=== PATIENT | male | born 1960 | race African-American/Black ===

== ENCOUNTER 2020-04-23 05:19 | Inpatient (IN) ==
[2020-04-23] MEDS ORDERED: SODIUM CHLORIDE 0.9% 1,000 ML IV STA (05:44)
[2020-04-23 05:47] LABS: Basophils % 0.2 % (0.0-0.8); Eosinophils % 0.2 % (0.00-10.9); Hematocrit 22.5 VOL% (42.0-52.0); Hemoglobin 7.6 GM/DL (14.0-18.0); Immature Granulocytes % 0.6 %; Immature Granulocytes Absolute 0.12 #; Lymphocytes # 1.3 10*3/uL (1.4-4.0); Lymphocytes % 6.5 % (21.2-54.2); Mean Corpuscular HGB Conc 33.8 GM/DL (32-36); Mean Corpuscular Volume 61.6 FL (87-102); Mean Platelet Volume 8.7 FL (9.6-12.0); Monocytes % 10.4 % (1.7-12.7); Neutrophils % 82.1 % (38.7-73.9); Platelet Count 471 T/CUMM (130-400); Red Blood Count 3.65 MC/CUMM (3.8-5.5); White Blood Count 19.9 T/CUMM (4-12)
[2020-04-23 06:11] LABS: Albumin 1.5 G/DL (3.4-5.0); Bilirubin,Total 0.4 MG/DL (0.2-1.0); Calcium 8.1 MG/DL (8.5-10.1); Osmolality,Calculated 283.8 MOS/KG (273-304); Total Protein 7.9 G/DL (6.4-8.3)
[2020-04-23] MEDS ORDERED: SODIUM CHLORIDE 0.9% 1,000 ML IV PRN (06:25)
[2020-04-23 08:22] LABS: Hypochromasia 2+; Microcytosis 2+; Platelet Estimate Increased; Target Cells 1+
[2020-04-23 08:23] LABS: Macrocytosis 1+
[2020-04-23] MEDS ORDERED: ONDANSETRON 4 MG/2 ML VIAL IV PRN (09:15)
[2020-04-23] MEDS ORDERED: GLUCAGON 1 MG VIAL IM PRN (09:15)
[2020-04-23] MEDS ORDERED: DEXTROSE 50% 25 GM/50 ML VIAL IV PRN (09:15)
[2020-04-23] MEDS: PIPERACILLIN/TAZOBACTAM 3,375 MG in SODIUM CHLORIDE 0.9% 100 ML IV SCH ×2 (11:32→20:19)
[2020-04-23] MEDS: SODIUM CHLORIDE 0.9% 1,000 ML IV SCH ×2 (11:32→23:43)
[2020-04-23 13:26] LABS: Hematocrit 25.6 VOL% (42.0-52.0); Hemoglobin 8.5 GM/DL (14.0-18.0)
[2020-04-23] MEDS: PANTOPRAZOLE INJ 200 MG in SODIUM CHLORIDE 0.9% 250 ML IV SCH (15:04)
[2020-04-23] MEDS ORDERED: IRON DEXTRAN 25 MG in SYRINGE 1 EACH IV ONE (20:00)
[2020-04-23] MEDS ORDERED: SODIUM CHLORIDE 0.9% IV ONE (21:00)
[2020-04-23] MEDS ORDERED: IRON DEXTRAN IV ONE (21:00)
[2020-04-24 01:37] LABS: Hematocrit 24.6 VOL% (42.0-52.0); Hemoglobin 8.3 GM/DL (14.0-18.0)
[2020-04-24] MEDS: PIPERACILLIN/TAZOBACTAM 3,375 MG in SODIUM CHLORIDE 0.9% 100 ML IV SCH ×3 (04:11→20:45)
[2020-04-24 07:09] LABS: Basophils % 0.2 % (0.0-0.8); Hematocrit 25.4 VOL% (42.0-52.0); Hemoglobin 8.8 GM/DL (14.0-18.0); Immature Granulocytes % 0.5 %; Immature Granulocytes Absolute 0.08 #; Lymphocytes # 0.9 10*3/uL (1.4-4.0); Lymphocytes % 6.1 % (21.2-54.2); Mean Corpuscular HGB Conc 34.6 GM/DL (32-36); Mean Corpuscular Volume 67.6 FL (87-102); Mean Platelet Volume 8.4 FL (9.6-12.0); Monocytes % 7.4 % (1.7-12.7); Neutrophils % 85.8 % (38.7-73.9); Red Blood Count 3.76 MC/CUMM (3.8-5.5); White Blood Count 15.4 T/CUMM (4-12)
[2020-04-24 07:12] LABS: Platelet Count 361 T/CUMM (130-400)
[2020-04-24 07:30] LABS: Albumin 1.4 G/DL (3.4-5.0); Calcium 8.2 MG/DL (8.5-10.1); INR 1.2; Osmolality,Calculated 290.8 MOS/KG (273-304); Partial Thromboplastin Time 34.6 SECS (23.9-33.8); Total Protein 6.8 G/DL (6.4-8.3)
[2020-04-24 08:45] LABS: Platelet Estimate Normal
[2020-04-24 08:50] LABS: Anisocytosis 3+; Hypochromasia 1+; Macrocytosis Slight; Poikilocytosis 1+; Polychromasia 1+; Target Cells 2+
[2020-04-24] MEDS: POTASSIUM CHLORIDE 20 MEQ/15 ML UDCUP PER TUBE PRN ×3 (11:32→17:15)
[2020-04-24] MEDS: SODIUM CHLORIDE 0.9% 1,000 ML IV SCH ×2 (11:32→21:28)
[2020-04-24] MEDS: PANTOPRAZOLE INJ 200 MG in SODIUM CHLORIDE 0.9% 250 ML IV SCH (11:32)
[2020-04-25] MEDS: PIPERACILLIN/TAZOBACTAM 3,375 MG in SODIUM CHLORIDE 0.9% 100 ML IV SCH ×3 (03:27→20:21)
[2020-04-25] MEDS: SODIUM CHLORIDE 0.9% 1,000 ML IV SCH ×2 (07:12→18:09)
[2020-04-25 08:15] LABS: Calcium 7.9 MG/DL (8.5-10.1); Osmolality,Calculated 294.3 MOS/KG (273-304)
[2020-04-25 08:23] LABS: Basophils % 0.2 % (0.0-0.8); Eosinophils % 0.1 % (0.00-10.9); Hematocrit 24.3 VOL% (42.0-52.0); Hemoglobin 8.4 GM/DL (14.0-18.0); Immature Granulocytes % 0.5 %; Immature Granulocytes Absolute 0.06 #; Lymphocytes # 1.1 10*3/uL (1.4-4.0); Lymphocytes % 9.2 % (21.2-54.2); Mean Corpuscular HGB Conc 34.6 GM/DL (32-36); Mean Corpuscular Volume 68.6 FL (87-102); Mean Platelet Volume 8.5 FL (9.6-12.0); Monocytes % 6.8 % (1.7-12.7); NRBC # 0.02 10*3/uL; Neutrophils % 83.2 % (38.7-73.9); Platelet Count 320 T/CUMM (130-400); Red Blood Count 3.54 MC/CUMM (3.8-5.5); White Blood Count 11.4 T/CUMM (4-12)
[2020-04-25 08:47] LABS: Anisocytosis 2+; Platelet Estimate Normal
[2020-04-25 08:48] LABS: Macrocytosis Slight; Poikilocytosis 1+; Schistocytes Few; Stomatocytes Few; Target Cells 2+
[2020-04-25 08:49] LABS: Hypochromasia Slight
[2020-04-25] MEDS ORDERED: POTASSIUM CHLORIDE 20 MEQ/15 ML UDCUP PO ONE (08:54)
[2020-04-25] MEDS: PANTOPRAZOLE INJ 200 MG in SODIUM CHLORIDE 0.9% 250 ML IV SCH (12:58)
[2020-04-25] MEDS: PANTOPRAZOLE 40 MG VIAL IV SCH (20:19)
[2020-04-25] MEDS: VALPROIC ACID 250 MG/5 ML UDCUP PEG SCH (20:23)
[2020-04-26] MEDS: PIPERACILLIN/TAZOBACTAM 3,375 MG in SODIUM CHLORIDE 0.9% 100 ML IV SCH (03:22)
[2020-04-26 05:59] LABS: Basophils % 0.2 % (0.0-0.8); Eosinophils # 0.1 10*3/uL (0.0-0.87); Eosinophils % 0.4 % (0.00-10.9); Hematocrit 24.7 VOL% (42.0-52.0); Hemoglobin 8.1 GM/DL (14.0-18.0); Immature Granulocytes % 0.8 %; Immature Granulocytes Absolute 0.11 #; Lymphocytes # 1.7 10*3/uL (1.4-4.0); Lymphocytes % 12.5 % (21.2-54.2); Mean Corpuscular HGB Conc 32.8 GM/DL (32-36); Mean Corpuscular Volume 69.6 FL (87-102); Mean Platelet Volume 8.9 FL (9.6-12.0); Monocytes % 5.5 % (1.7-12.7); NRBC # 0.04 10*3/uL; Neutrophils % 80.6 % (38.7-73.9); Platelet Count 363 T/CUMM (130-400); Red Blood Count 3.55 MC/CUMM (3.8-5.5); White Blood Count 13.7 T/CUMM (4-12)
[2020-04-26 06:12] LABS: Calcium 7.8 MG/DL (8.5-10.1); Osmolality,Calculated 287.6 MOS/KG (273-304)
[2020-04-26 07:19] LABS: Anisocytosis 2+; Platelet Estimate Normal; Poikilocytosis 1+; Schistocytes Few; Target Cells 2+
[2020-04-26 07:20] LABS: Spherocytes Few
[2020-04-26] MEDS ORDERED: LIDOCAINE 2% 5 ML VIAL ONE (07:38)
[2020-04-26] MEDS ORDERED: ETOMIDATE 20 MG/10 ML VIAL IV ONE (07:38)
[2020-04-26] MEDS ORDERED: PHENYLEPHRINE 1 MG/10 ML SYRINGE IV ONE (07:57)
[2020-04-26] MEDS ORDERED: LACTATED RINGERS 1,000 ML IV SCH (08:00)
[2020-04-26 08:37] VITALS: BP 90/59
[2020-04-26] MEDS ORDERED: ATORVASTATIN 10 MG TABLET PEG SCH (09:00)
[2020-04-26] MEDS: VALPROIC ACID 250 MG/5 ML UDCUP PEG SCH (09:09)
[2020-04-26] MEDS: SODIUM CHLORIDE 0.9% 1,000 ML IV SCH (09:09)
[2020-04-26] MEDS: PANTOPRAZOLE 40 MG VIAL IV SCH (09:10)
== END 2020-04-26 10:25 | DRG 368 ==
LOC: N.ED 05:19 → SUATTDRO 09:15 → N.EDINP 09:15 → N.5E 11:22
PROVIDERS: ADMIT Emergency Medicine; ATTEND Internal Medicine Geriatric Medicine